=== PATIENT | female | born 1940 | race Caucasian/White ===

== ENCOUNTER 2018-01-27 08:33 | Day surgery (SDC) | payer MEDICARE, BC ==
[~2018-01-27] VITALS: Ht 162.6 cm; Wt 64.5 kg
[~2018-01-27 08:33] MED LIST: LIDOcaine 1%/PF 5ML 10 MG/ML VIAL SQ ONE
[2018-01-27] MEDS ORDERED: normal saline 1000ml 1,000 ML IV PRN (09:00)
[2018-01-27] MEDS ORDERED: albumin (human) 25% 100 ML IV solution IV PRN (09:00)
[2018-01-27] MEDS ORDERED: FURO-150 PO (09:03)
[2018-01-27] MEDS ORDERED: AMIO200T40 PO (09:03)
[2018-01-27] MEDS ORDERED: RIVA20TA PO (09:03)
[2018-01-27] MEDS ORDERED: SIMV20TA5 PO (09:03)
[2018-01-27] MEDS ORDERED: SPIR25TA5 PO (09:03)
[2018-01-27] MEDS ORDERED: POTA10TA10 PO (09:03)
[2018-01-27] MEDS ORDERED: SILD20TA PO (09:03)
[2018-01-27] MEDS ORDERED: SYN0.088T PO (09:03)
[2018-01-27 09:04] VITALS: BP 153/76
[2018-01-27 09:46] VITALS: BP 138/73
[2018-01-27 10:00] VITALS: BP 122/64
[2018-01-27 10:15] VITALS: BP 120/57
[2018-01-27 10:30] VITALS: BP 143/71
[2018-01-27 10:45] VITALS: BP 136/63
[2018-01-27 11:30] LABS: GLUCOSE,BODY FLUID 60 MG/DL; LDH,BODY FLUID 859 U/L; TOTAL PROTEIN,BODY FLUID 5.2 G/DL
[2018-01-27 11:50] LABS: BFAPPEAR CLOUDY
[2018-01-27 11:52] LABS: BF RBC COUNT 2175 /CU MM; BF WBC COUNT 540 /CU MM (0-1000); BFCOLOR AMBER; BFVOLUME 50 ML
[2018-01-27 11:56] LABS: EOSINOPHILS,BODY FLUID 2 %; LYMPHOCYTES,BODY FLUID 23 %; MONOCYTES,BODY FLUID 50 %; NEUTROPHILS,BODY FLUID 25 %
[2018-01-27 12:00] LABS: BF MESOTHELIAL CELLS MODERATE; OTHER CELLS,BODY FLUID MACROPHAGES
[2018-01-27 12:03] LABS: BF UNCLASSIFIED CELLS MODERATE
== END 2018-01-27 10:58 | disposition home or self-care (01) ==
LOC: SSTAY O 08:33
PROVIDERS: ATTEND Radiology Vascular & Interventional Radiology
DX: R18.0 Malignant ascites (principal); I48.91 Unspecified atrial fibrillation; I27.20 Pulmonary hypertension, unspecified; E03.9 Hypothyroidism, unspecified; I27.81 Cor pulmonale (chronic); I10 Essential (primary) hypertension; E78.5 Hyperlipidemia, unspecified; Z88.5 Allergy status to narcotic agent; Z86.73 Personal history of transient ischemic attack (TIA), and cerebral infarction without residual deficits; Z79.899 Other long term (current) drug therapy; Z82.49 Family history of ischemic heart disease and other diseases of the circulatory system
CPT/HCPCS: 49083; 82945; 83615; 84157; 87070; 89051; A6257; J2001; J7030